=== PATIENT | male | born 2000 | race Asian ===

== ENCOUNTER → 2024-11-03 15:57 | Outpatient (REF) | payer BC, SELFPAY ==
[2024-11-04 17:45] LABS: Hepatitis B Surface Antigen Negative (Negative)
[2024-11-08 07:59] LABS: Rubeola Virus IgM (Measles) 0.26 AU (0.00-0.79)
== END ==
LOC: REG 15:57
PROVIDERS: ATTENDING PHYSICIAN Nurse Practitioner
DX: Z00.00 Encounter for general adult medical examination without abnormal findings (principal); L70.9 Acne, unspecified; Z68.29 Body mass index [BMI] 29.0-29.9, adult
CPT/HCPCS: 36415; 86706; 86709; 86765; 87340